=== PATIENT | male | born 1960 | race Caucasian/White ===

== ENCOUNTER 2018-07-25 08:55 | Day surgery (SDC) | payer BC ==
[~2018-07-25 08:55] MED LIST: Bupivacaine 0.5% 50 ML MDV ONE
[2018-07-25] MEDS ORDERED: Propofol 200 MG/20 ML SDV ONE (09:30)
[2018-07-25] MEDS ORDERED: fentaNYL 100 MCG/2 ML SDV ONE (09:30)
[2018-07-25] MEDS ORDERED: Midazolam 1 MG/ML 2 ML SDV ONE (09:30)
[2018-07-25] MEDS ORDERED: Sodium Chloride 0.9% 1,000 ML IV SCH (09:45)
[2018-07-25] MEDS ORDERED: ceFAZolin 1 GM in Premix Bag 1 BAG IV ONE (10:00)
--- NOTE | 2018-07-27 15:57 | PCM.OPNOTE ---
- General Post-Op/Procedure Note Date of Surgery/Procedure: 07/25/18 Operative Procedure(s): Excision of osteophytes anterior ankle Findings: Large osteophyte anterior distal tibia, impingement right ankle Pre Op Diagnosis: Betina impingement anterior right ankle Post-Op Diagnosis: Same Anesthesia Technique: Spinal Primary Surgeon: Aristides STEEVN in mLs: 10 Complications: None Condition: Good Free Text/Narrative:: Indications:Doug is a 57-year-old gentleman with a history of right ankle pain and decreased range of motion. He had a previous ankle fracture and now has posttraumatic degenerative change with a large osteophyte off the anterior distal tibia. This is impinging against the talus restricting motion. He now presents for removal of the osteophyte.Risks,benefits and potential complications were discussed. He agrees to proceed. Procedure: After adequate spinal anesthesia was obtained patient was placed supine with a tourniquet about the right upper thigh. Right leg was prepped and draped in a sterile fashion. Leg is exsanguinated and tourniqt inflated to 300 mg of merc pressure. Incision was made over the anterior aspect of the ankle carried down through the subcutaneous tissues.Subcutaneous sensory branches of nerves were identified and retracted, Dissection carried down to the retinaculum.Retinaculum was divided and dissection carried down to the joint capsule. Joint capsule was then divided and elevated off of the anterior joint. The osteophyte was identified.Using combination of a osteotome and a ronguer. Retractor was placed about the medial side of the joint.Inspection of the joint revealed some persistence of the osteophyte and this was removed again with osteotome and ronguer.Inspection of the lateral aspect of the joint also revealed some residual osteophyte present. This was removed in a similar fashion. Ankle was then irrigated and taken through a range of motion. An area of denuded articular cartilage was noted on the anterior aspect of the dome of the talus. No evidence of further impingement was noted. This irrigated once again. The capsule was then closed with 0 Vicryl in interrupted fashion. Retinaculum was closed in a separate layer with 0 Vicryl. Skin was closed with 2 -0 Vicryl and a running 3-0 Monocryl. Steri-Strips were applied.Surgical site was injected with 0.5% Marcaine.Sterile dressing was then applied.Tolerated the pure well there were no complications.
== END 2018-07-25 16:00 | disposition home or self-care (01) ==
LOC: JP.SDS 08:55
PROVIDERS: ATTEND Specialist
DX: M25.871 Other specified joint disorders, right ankle and foot (principal); M25.771 Osteophyte, right ankle; K21.9 Gastro-esophageal reflux disease without esophagitis; G47.30 Sleep apnea, unspecified; E78.5 Hyperlipidemia, unspecified; Z79.899 Other long term (current) drug therapy
CPT/HCPCS: 27635; J0690; J2250; J2704; J3010; J3490; J7030

== ENCOUNTER 2019-04-30 06:12 | Day surgery (SDC) | payer BC ==
[2019-04-30] MEDS ORDERED: Bupivacaine 0.5% 30 ML SDV ONE ×2 (06:44→07:22)
[2019-04-30] MEDS ORDERED: Lactated Ringers 1,000 ML IV SCH (07:00)
[2019-04-30] MEDS ORDERED: Nozin Nasal Sanitizer NASBOTH ONE (07:15)
[2019-04-30] MEDS ORDERED: Rocuronium 50 MG/5 ML Vial ONE (07:16)
[2019-04-30] MEDS ORDERED: Propofol 200 MG/20 ML SDV ONE (07:16)
[2019-04-30] MEDS ORDERED: Succinylcholine 200 MG/10 ML MDV ONE (07:16)
[2019-04-30] MEDS ORDERED: fentaNYL 100 MCG/2 ML SDV ONE ×2 (07:16→09:35)
[2019-04-30] MEDS ORDERED: Dexamethasone 4 MG/ML SDV ONE (07:16)
[2019-04-30] MEDS ORDERED: Midazolam 1 MG/ML 2 ML SDV ONE (07:16)
[2019-04-30] MEDS ORDERED: Ondansetron 4 MG/2 ML SDV ONE (07:16)
[2019-04-30] MEDS ORDERED: ceFAZolin 2 GM in Sodium Chloride 0.9% 50 ML IV ONE (07:30)
[2019-04-30] MEDS ORDERED: methylPREDNISolone Acetate 80 MG/ML SDV ONE (07:53)
[2019-04-30] MEDS ORDERED: Lactated Ringers 1,000 ML ONE (10:01)
--- NOTE | 2019-05-09 21:30 | OR ---
DATE OF PROCEDURE: 04/30/2019 SURGEON: Aristides Hopson MD PREOPERATIVE DIAGNOSES: 1. Osteoarthritis, left elbow. 2. Arthrofibrosis, left elbow. 3. Chronic lateral epicondylitis. POSTOPERATIVE DIAGNOSES: 1. Osteoarthritis, left elbow. 2. Arthrofibrosis, left elbow. 3. Chronic lateral epicondylitis. PROCEDURES: 1. Arthroscopy of left elbow with anterior capsular release. 2. Debridement of osteophytes, coronoid and olecranon process as well as olecranon fossa. 3. Release of extensor carpi radialis brevis. ANESTHESIA: General. INDICATIONS: Doug is a 58-year-old gentleman with a history of progressive stiffness and pain in the left elbow. Becoming increasingly difficult to continue with work and activities of daily living. Decreased range of motion. X-rays reveal arthritic changes with overgrowth, osteophyte formation in the olecranon and coronoid processes as well as in the fossas. He has had previous debridement, which helped for an extended period of time and now is having increasing difficulty. Also experiencing increasing pain over the lateral aspect of the elbow, epicondylar region and the cortisone injections have helped temporarily. Presents for arthroscopy with debridement of osteophytes and release of ECRB. Risks, benefits, and potential complications were discussed. DESCRIPTION OF PROCEDURE: After adequate anesthesia was obtained, the patient was placed in a lateral decubitus position and secured with a beanbag positioner. Right arm was prepped and draped in a sterile fashion. This was then placed over a padded arm juares in a flexed position. Arm was exsanguinated and tourniquet inflated to 250 mmHg pressure. The joint was injected with approximately 20 mL of normal saline distending the joint and position of fluid confirmed with easy return through the spinal needle. An anterior lateral portal was initially established. This showed some fairly significant scarring and fibrosis within the joint. Medial portal was then established taking care to avoid the ulnar nerve which had been previously released. Shaver was used to debride a portion of the capsule for better visualization and the ablation wand was then used to release the capsule from the humerus superiorly. Overgrowth of the coronoid process was visualized. A glory was used to debride this back approximately 5-6 mm. No loose bodies were present within the joint. Scope was switched to the medial portal and viewing laterally. The radiocapitellar joint was found to have complete loss of articular cartilage. Minimal spurring was present, however. Ablation wand was used to extend the capsular release out over the lateral epicondyle and the tendon of the extensor carpi radialis brevis was identified and released. Attention was then turned to the posterior aspect of the elbow. Previous scope portal scars were visualized and were used. Incision was made through the triceps tendon and scope was introduced. The accessory portal was then established just lateral to this again through the previous port site. Shaver was introduced and portions of the capsule were debrided for visualization. Overgrowth of the olecranon process was noted as well as overgrowth of the olecranon fossa with osteophytes. A glory was introduced and the olecranon fossa was debrided back several millimeters. Encroaching osteophytes in the fossa were also debrided with a glory. All loose fragments were removed. No loose bodies were identified. The articular surface of the posterior trochlear groove was still intact. The scope was withdrawn. The arm was then taken through range of motion. Slight manipulation applied and extension could be obtained to within approximately 5 degrees of full extension, which was an improvement of 15 to 20 degrees of his preop status. Port sites were then closed with 3- 0 Monocryl and Steri-Strips. Wounds were infiltrated with Marcaine and a sterile dressing was applied. The patient tolerated the procedure well with no complications, taken from the operating room in stable condition. Aristides Hopson MD /[id number]
== END 2019-04-30 12:10 | disposition home or self-care (01) ==
LOC: JP.SDS 06:12
PROVIDERS: ATTEND Specialist
DX: M19.022 Primary osteoarthritis, left elbow (principal); M24.622 Ankylosis, left elbow; M77.12 Lateral epicondylitis, left elbow; M25.722 Osteophyte, left elbow; E78.5 Hyperlipidemia, unspecified; R73.01 Impaired fasting glucose; G47.33 Obstructive sleep apnea (adult) (pediatric); K21.9 Gastro-esophageal reflux disease without esophagitis; Z99.89 Dependence on other enabling machines and devices; Z79.899 Other long term (current) drug therapy
CPT/HCPCS: 20999; 29838; A9270; C1713; J0330; J0690; J1040; J1100; J2250; J2405; J2704; J3010; J3490; J7050; J7120

== ENCOUNTER 2020-06-28 07:45 | Day surgery (SDC) | payer BC ==
[2020-06-28] MEDS ORDERED: fentaNYL 100 MCG/2 ML SDV ONE (07:57)
[2020-06-28] MEDS ORDERED: Propofol 200 MG/20 ML SDV ONE ×2 (07:57→09:56)
[2020-06-28] MEDS ORDERED: Midazolam 1 MG/ML 2 ML SDV ONE (07:57)
[2020-06-28] MEDS ORDERED: Dextrose 5%-Lactated Ringers 1,000 ML IV SCH (08:30)
--- NOTE | 2020-07-05 15:11 | OR ---
DATE OF PROCEDURE: 06/28/2020 SURGEON: Ramses Decker MD PREOPERATIVE DIAGNOSES: 1. Gastroesophageal reflux disease. 2. Indications for screening colonoscopy with positive family history of colon carcinoma. POSTOPERATIVE DIAGNOSES: 1. 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 2. Mild antral gastritis and proximal duodenitis. 3. Single 2 mm polyp in rectum (10 cm from dentate line). OPERATIVE PROCEDURES: 1. Esophagogastroduodenoscopy with: a. Biopsy of esophagogastric junction for histologic evaluation. b. Biopsies of antrum for CLOtest. 2. Flexible colonoscopy with polypectomy by cold biopsy forceps. ANESTHESIA: IV sedation. INDICATIONS FOR PROCEDURE: A 59-year-old male presenting with some ongoing reflux disease as well as a family history of colon carcinoma. Plan is to proceed with an upper and lower endoscopy with biopsies and/or polypectomies as indicated. Potential risks including bleeding and perforation were discussed, and the patient wishes to proceed. DETAILS OF PROCEDURE: The patient was taken to the operating room and placed in a left lateral decubitus position. IV sedation was administered after which the upper GI endoscope was passed orally through the length of the esophagus into the stomach with retroflexion view of the fundus, thereafter through the pyloric channel and into the proximal duodenum. Findings included normal hypopharynx, larynx, upper esophageal sphincter, esophageal body. At the EG junction, a small hiatal hernia was present. There was minimal gross inflammation at the esophagogastric junction. 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 No stricturing, plaquing, or other suggestion of neoplastic change was seen. Within the stomach, there was some patchy redness in the antrum and the duodenal bulb, otherwise these areas were normal. At this point, biopsies were obtained from the antrum and sent for CLOtest for H pylori. 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 Minimal bleeding from the biopsy sites was seen and the procedure then concluded. Attention was then taken to the colonoscopy. Initial digital rectal exam was performed, it was unremarkable. Colonoscope was then passed into the rectum with retroflexion revealing uncomplicated hemorrhoidal columns. Scope was eventually passed to the level of the cecum. The prep was quite good, only a small amount of liquid stool was present. There were no areas of diverticular disease or colitis. There was a single 2 mm polyp in the rectum and this was removed by cold biopsy forceps in two bites and good hemostasis was noted and the procedure then concluded. Plan will be to call the patient regarding followup depending on the histologic evaluation of the Hector esophagus and colon biopsies. At a very minimum, the patient would need to have a repeat colonoscopy in 5 years given the family history. If there is adenomatous polyp identified within the removed polyp, then followup should be in 3 years in terms of colonoscopy, and if Hector esophagus is identified, he should have a repeat endoscopy in 2 to 3 years for surveillance of the Hector esophagus. Ramses Decker MD /[id number]
== END 2020-06-28 11:16 | disposition home or self-care (01) ==
LOC: JP.SDS 07:45
PROVIDERS: ATTEND Surgery
DX: Z12.11 Encounter for screening for malignant neoplasm of colon (principal); K62.1 Rectal polyp; K31.89 Other diseases of stomach and duodenum; K29.90 Gastroduodenitis, unspecified, without bleeding; K21.9 Gastro-esophageal reflux disease without esophagitis; K44.9 Diaphragmatic hernia without obstruction or gangrene; I10 Essential (primary) hypertension; K64.9 Unspecified hemorrhoids; Z80.0 Family history of malignant neoplasm of digestive organs; Z91.040 Latex allergy status
CPT/HCPCS: 43239; 45380; 87081; J2250; J2704; J3010; J7121; 88305

== ENCOUNTER 2021-11-11 18:08 | Emergency (ER) | payer BC ==
[2021-11-11] MEDS ORDERED: Diphtheria,Pertussis(Acell),Tetanus Vaccine 0.5 ML Syringe IM ONE (18:29)
[2021-11-11] MEDS ORDERED: Bacitracin Oint 1 GM U/D Packet TOP ONE (19:04)
[2021-11-11] MEDS ORDERED: Lidocaine 1% 5 ML VIAL INJECT ONE (19:04)
== END 2021-11-11 19:36 | disposition home or self-care (01) ==
LOC: JP.ED 18:08
DX: S51.011A Laceration without foreign body of right elbow, initial encounter (principal); M70.21 Olecranon bursitis, right elbow; K21.9 Gastro-esophageal reflux disease without esophagitis; I10 Essential (primary) hypertension; E66.9 Obesity, unspecified; Z68.30 Body mass index [BMI] 30.0-30.9, adult; Z23 Encounter for immunization; Z79.899 Other long term (current) drug therapy; Z79.82 Long term (current) use of aspirin; Z91.040 Latex allergy status; Z88.8 Allergy status to other drugs, medicaments and biological substances; W22.8XXA Striking against or struck by other objects, initial encounter
CPT/HCPCS: 12001; 73080-RT; 90471; 90715; 99282; 99283-25

== ENCOUNTER 2023-05-16 07:05 | Day surgery (SDC) | payer BC ==
[2023-05-16] MEDS ORDERED: Bupivacaine 0.5% 30 ML SDV ONE ×2 (07:12→07:13)
[2023-05-16] MEDS ORDERED: Midazolam 1 MG/ML 2 ML SDV ONE (07:17)
[2023-05-16] MEDS ORDERED: Propofol 200 MG/20 ML SDV ONE ×2 (07:17→10:15)
[2023-05-16] MEDS ORDERED: fentaNYL 100 MCG/2 ML SDV ONE ×2 (07:17→09:04)
[2023-05-16 07:29] LABS: HEMATOCRIT 38.7 % (38.4-49.7); HEMOGLOBIN 13.5 g/dL (12.9-16.9); MEAN CORPUSCULAR HEMOGLOBIN 31.8 pg (31.6-35.5); MEAN CORPUSCULAR HGB CONC 34.9 g/dL (31.6-35.5); MEAN CORPUSCULAR VOLUME 91.3 fL (81.4-99.0); RED BLOOD CELL COUNT 4.24 M/uL (4.14-5.76); WHITE BLOOD CELL COUNT,WBC 4.9 K/uL (3.2-11.0)
[2023-05-16] MEDS ORDERED: Nozin Nasal Sanitizer NASBOTH ONE (07:45)
[2023-05-16 07:49] LABS: A/G RATIO 1.3 (1.2-2.2); ALANINE AMINOTRANSFERASE,ALT 31 U/L (12-78); ALBUMIN 3.9 g/dL (3.4-5.0); ALKALINE PHOSPHATASE 54 U/L (46-116); ASPARTATE AMNIOTRANSFERASE,AST 16 U/L (15-37); BILIRUBIN TOTAL 0.3 mg/dL (0.2-1.0); BLOOD UREA NITROGEN,BUN 21 mg/dL (7-18); CALCIUM 8.6 mg/dL (8.5-10.1); CARBON DIOXIDE,CO2 27 mmol/L (21-32); CHLORIDE,CL 103 mmol/L (100-108); CREATININE 1.1 mg/dL (0.8-1.3); EST CRCL DRUG DOSING (CG) 74.16 mL/min; ESTIMATED GFR 76 mL/min (>60); GLUCOSE RANDOM 133 mg/dL (74-106); POTASSIUM,K 4.4 mmol/L (3.6-5.2); SODIUM,NA 139 mmol/L (140-148)
[2023-05-16 07:51] LABS: ANION GAP 13.4 mmol/L (5.0-14.0)
[2023-05-16] MEDS ORDERED: Ondansetron 4 MG/2 ML SDV ONE (07:54)
[2023-05-16] MEDS ORDERED: Glycopyrrolate 0.2 MG/ML 5 ML MDV ONE (07:54)
[2023-05-16] MEDS ORDERED: Neostigmine Methylsulfate 10 MG/10 ML MDV ONE (07:54)
[2023-05-16] MEDS ORDERED: Succinylcholine 200 MG/10 ML MDV ONE (07:54)
[2023-05-16] MEDS ORDERED: Dexamethasone 4 MG/ML SDV ONE (07:54)
[2023-05-16] MEDS ORDERED: Rocuronium 50 MG/5 ML Vial ONE (07:54)
[2023-05-16] MEDS ORDERED: Lactated Ringers 1,000 ML IV SCH (08:00)
[2023-05-16] MEDS ORDERED: ceFAZolin 2 GM in Sodium Chloride 0.9% 50 ML IV ONE (08:30)
== END 2023-05-16 12:35 | disposition home or self-care (01) ==
LOC: JP.SDS 07:05
PROVIDERS: ATTEND Specialist
DX: M75.102 Unspecified rotator cuff tear or rupture of left shoulder, not specified as traumatic (principal); M19.012 Primary osteoarthritis, left shoulder; I10 Essential (primary) hypertension; G47.33 Obstructive sleep apnea (adult) (pediatric); F17.200 Nicotine dependence, unspecified, uncomplicated; J44.9 Chronic obstructive pulmonary disease, unspecified
CPT/HCPCS: 29824; 29826; 29827; 36415; 80053; 85027; 93005; 93010; A9270; C1713; J0330; J0690; J1100; J2250; J2405; J2704; J2710; J3010; J3490; J7120